=== PATIENT | male | born 1985 | race Two or more races ===

== ENCOUNTER 2022-01-29 23:20 | Emergency (ER) | payer MEDICAID ==
[~2022-01-29] VITALS: Ht 182.9 cm; Wt 136.4 kg
[2022-01-29 23:41] LABS: GLUCOMETER DEV NAME(LOC) ERT.5; GLUCOSE,POINT OF CARE 300 MG/DL (70-110)
[2022-01-29] MEDS ORDERED: METF-1211 PO (23:44)
[2022-01-30 02:07] VITALS: BP 129/83
[2022-01-30] MEDS ORDERED: FLUC150T61 PO (02:20)
[2022-01-30] MEDS ORDERED: CLOT15CR23 TP (02:20)
[2022-01-30] MEDS ORDERED: HYDR30CR44 TP (02:20)
== END 2022-01-30 03:28 | disposition home or self-care (01) ==
LOC: EMS 23:22
DX: B37.42 Candidal balanitis (principal); E11.65 Type 2 diabetes mellitus with hyperglycemia; E78.00 Pure hypercholesterolemia, unspecified; I10 Essential (primary) hypertension
CPT/HCPCS: 82962; 99283